=== PATIENT | female | born 1995 | race American Indian/Alaskan Native ===

== ENCOUNTER 2020-11-12 15:30 | Emergency (ER) | payer SELFPAY ==
[2020-11-12 15:43] VITALS: BP 143/98
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
== END 2020-11-12 18:56 | disposition left against medical advice (07) ==
LOC: ED 15:30
DX: R51.9 Headache, unspecified (principal); Z53.21 Procedure and treatment not carried out due to patient leaving prior to being seen by health care provider